=== PATIENT | female | born 1940 | race Caucasian/White ===

== ENCOUNTER 2016-12-31 13:40 | Emergency (ER) | payer MEDICARE ==
[~2016-12-31] VITALS: Ht 175.3 cm; Wt 82.0 kg
[~2016-12-31 13:40] MED LIST: ALBU0.086 NEB; ASPI325T PO; BENI40TA30 PO; EFFE150C PO; FURO1TAB93 PO; LEVO.05 PO; LIPI10TA PO; MUPI2%T TOP; PRED20 PO; PROP20TA3 PO; TRIA.1%T TOP; VENTAER INH; ZITH250T PO
[2016-12-31 13:43] VITALS: BP 140/75; PULSE 77; RESP 14; TEMP 97.4; O2SAT 95
[2016-12-31 16:13] LABS: AUTOMATED NEUTROPHIL # 5.4 TH/MM3 (1.8-7.7); BASOPHIL % 0.6 % (0.0-2.0); EOSINOPHIL # 0.2 TH/MM3 (0-0.4); EOSINOPHIL % 2.3 % (0.0-4.0); HEMATOCRIT 42.8 % (35.0-46.0); HEMO FLAGS DIFF FINAL; LYMPH % 24.1 % (9.0-44.0); MEAN CELL VOLUME 90.6 FL (80.0-100.0); MEAN CORPUSCULAR HEMOGLOBIN 30.3 PG (27.0-34.0); MEAN CORPUSCULAR HGB CONC 33.5 % (32.0-36.0); MONO % 8.6 % (0.0-8.0); NEUT % 64.4 % (16.0-70.0); PLATELET COUNT 295 TH/MM3 (150-450); RED BLOOD COUNT 4.72 MIL/MM3 (4.00-5.30); RED CELL DISTRIBUTION WIDTH 14.4 % (11.6-17.2); WHITE BLOOD COUNT 8.4 TH/MM3 (4.0-11.0)
[2016-12-31 16:17] LABS: BACTERIA, URINE RARE /hpf; BLOOD, URINE NEG (NEG); COMMENT (UR) CULT NOT INDICATED; CULTURE IF INDICATED CULT NOT INDICATED; GLUCOSE,URINE NEG (NEG); HYALINE CAST, URINE 13 /lpf (RARE); KETONE, URINE NEG (NEG); NITRITE,URINE NEG (NEG); PH, URINE 5.5 (5.0-8.5); SQUAMOUS EPITHELIAL CELL URINE 2 /hpf (0-5); URINE COLOR YELLOW (YELLW/STRAW)
[2016-12-31 16:29] LABS: ALT (GPT) 27 U/L (10-53); ANION GAP 7 MEQ/L (5-15); AST (GOT) 21 U/L (15-37); BICARBONATE 27.1 MEQ/L (21.0-32.0); BLOOD UREA NITROGEN 31 MG/DL (7-18); CHLORIDE 103 MEQ/L (98-107); GLOMERULAR FILTRATION RATE 34 ML/MIN (>89); POTASSIUM 3.8 MEQ/L (3.5-5.1); SODIUM (NA) 137 MEQ/L (136-145)
[2016-12-31 16:31] LABS: ALKALINE PHOSPHATASE 79 U/L (45-117); TOTAL BILIRUBIN ADULT 0.4 MG/DL (0.2-1.0)
--- NOTE | 2016-12-31 18:44 | PD ---
HPI Chief Complaint: GI Complaint Time Seen by Provider: 18:31 Travel History International Travel<30 days: No Contact w/Intl Traveler<30days: No Traveled to known affect area: No History of Present Illness HPI 76-year-old female here for evaluation of intermittent abdominal cramping and diarrhea since last week. Patient reports symptoms started after eating at a [employer]. Bowel movements have been loose/brown, nonbloody, no melena. No vomiting. No fevers or chills. History of hysterectomy and cholecystectomy. Abdominal cramping is diffuse, moderate, no modifying factors. Patient reports history of similar symptoms in the past that have been occurring every couple of months. States that she was seen by a intraoperative neuro tech about a year ago, but was not diagnosed with anything significant. Patient's daughter also reports that the patient has had about a pound weight loss over the last several days. No chest pain or dyspnea. Triage vital signs are within normal limits. Basic laboratory performed in triage shows a CBC that was unremarkable, CMP remarkable for BUN 31, creatinine 0.7, GFR 34 which is slightly worse than her baseline, otherwise unremarkable. Lipase 133. Lactic acid 0.9. UA not suggestive of UTI. PFSH Past Medical History Anemia: Yes Arthritis: Yes Asthma: Yes Anxiety: Yes Depression: No Cancer: No Cardiovascular Problems: Yes High Cholesterol: Yes Congestive Heart Failure: Yes COPD: Yes Cerebrovascular Accident: Yes Diabetes: No Diminished Hearing: No Endocrine: Yes GERD: Yes Genitourinary: No Hepatitis: No Hiatal Hernia: No Hypertension: Yes Immune Disorder: No Musculoskeletal: Yes Neurologic: Yes Psychiatric: Yes Reproductive: No Respiratory: Yes Pneumonia: Yes Thyroid Disease: Yes ?: Not Menopausal: Yes : 1 Para: 1 Past Surgical History Abdominal Surgery: Yes (LAP. ELIZ) AICD: No Cholecystectomy: Yes Ear Surgery: No Eye Surgery: Yes (BILATERAL CATARACT) Gynecologic Surgery: Yes (HYSTERECTOMY) Hysterectomy: Yes Joint Replacement: Yes (LEFT/RIGHT HIP TOTAL) Oral Surgery: No Pacemaker: No Other Surgery: Yes Social History Alcohol Use: Yes (OCCASSIONAL) Tobacco Use: No Substance Use: No Allergies-Medications (Allergen,Severity, Reaction): Coded Allergies: Cipro (Verified Allergy, Severe, HIVES, 12/31/16) Celebrex (Unverified Adverse Reaction, Severe, CONGESTIVE HEART FAILURE, ) Adhesives (Unverified Adverse Reaction, Mild, 12/31/16) 05/11/13 UNABLE TO REMEMBER RXN Reported Meds & Prescriptions Reported Meds & Active Scripts Active Reported Effexor XR 24 HR (Venlafaxine HCl) 150 Mg Cap 150 Mg PO DAILY Benicar (Olmesartan) 20 Mg Tab 20 Mg PO DAILY Propranolol (Propranolol HCl) 20 Mg Tab 20 Mg PO DAILY Synthroid (Levothyroxine Sodium) 50 Mcg Tab 50 Mcg PO DAILY Furosemide 40 Mg Tab 40 Mg PO DAILY Aspirin 325 Mg Tab 325 Mg PO DAILY Review of Systems Except as stated in HPI: all other systems reviewed are Neg Physical Exam Narrative GENERAL: Well-developed, well-nourished, comfortable, no acute distress. SKIN: Warm and dry. HEAD: Atraumatic. Normocephalic. EYES: Pupils equal and round. No scleral icterus. No injection or drainage. ENT: Mucous membranes pink and moist. NECK: Trachea midline. No JVD. CARDIOVASCULAR: Regular rate and rhythm. No murmur appreciated. RESPIRATORY: No accessory muscle use. Clear to auscultation. Breath sounds equal bilaterally. GASTROINTESTINAL: Abdomen soft, nondistended. Mild diffuse tenderness without rebound or guarding. Normal bowel sounds. MUSCULOSKELETAL: No obvious deformities. No clubbing. No cyanosis. No edema. NEUROLOGICAL: Awake and alert. No obvious cranial nerve deficits. Motor grossly within normal limits. Normal speech. PSYCHIATRIC: Appropriate mood and affect; insight and judgment normal. Data Data Last Documented VS Vital Signs Date Time Temp Pulse Resp B/P Pulse Ox O2 Delivery O2 Flow Rate FiO2 12/31/16 19:09 63 18 208/88 97 Room Air 12/31/16 13:43 97.4 Orders Complete Blood Count With Diff (12/31/16 14:35) Comprehensive Metabolic Panel (12/31/16 14:35) Lipase (12/31/16 14:35) Lactic Acid (12/31/16 14:35) Urinalysis - C+S If Indicated (12/31/16 14:35) Sodium Chlor 0.9% 1000 Ml Inj (Ns 1000 M (12/31/16 18:45) Dicyclomine (Bentyl) (12/31/16 18:45) Ct Abd/Pel W/O Iv Contrast (12/31/16 ) Influenzae A/B Antigen (12/31/16 18:38) Electrocardiogram (12/31/16 ) Propranolol (Inderal) (12/31/16 20:00) Ckmb (Isoenzyme) Profile (12/31/16 19:28) Troponin I (12/31/16 19:28) CKMB (12/31/16 15:50) CKMB% (12/31/16 15:50) Labs Laboratory Tests Test 12/31/16 12/31/16 15:50 15:55 White Blood Count 8.4 TH/MM3 Red Blood Count 4.72 MIL/MM3 Hemoglobin 14.3 GM/DL Hematocrit 42.8 % Mean Corpuscular Volume 90.6 FL Mean Corpuscular Hemoglobin 30.3 PG Mean Corpuscular Hemoglobin 33.5 % Concent Red Cell Distribution Width 14.4 % Platelet Count 295 TH/MM3 Mean Platelet Volume 7.1 FL Neutrophils (%) (Auto) 64.4 % Lymphocytes (%) (Auto) 24.1 % Monocytes (%) (Auto) 8.6 % Eosinophils (%) (Auto) 2.3 % Basophils (%) (Auto) 0.6 % Neutrophils # (Auto) 5.4 TH/MM3 Lymphocytes # (Auto) 2.0 TH/MM3 Monocytes # (Auto) 0.7 TH/MM3 Eosinophils # (Auto) 0.2 TH/MM3 Basophils # (Auto) 0.0 TH/MM3 CBC Comment DIFF FINAL Differential Comment Sodium Level 137 MEQ/L Potassium Level 3.8 MEQ/L Chloride Level 103 MEQ/L Carbon Dioxide Level 27.1 MEQ/L Anion Gap 7 MEQ/L Blood Urea Nitrogen 31 MG/DL Creatinine 1.47 MG/DL Estimat Glomerular Filtration 34 ML/MIN Rate Random Glucose 125 MG/DL Lactic Acid Level 0.9 mmol/L Calcium Level 9.4 MG/DL Total Bilirubin 0.4 MG/DL Aspartate Amino Transf 21 U/L (AST/SGOT) Alanine Aminotransferase 27 U/L (ALT/SGPT) Alkaline Phosphatase 79 U/L Total Creatine Kinase 116 U/L Creatine Kinase MB 1.9 NG/ML Troponin I LESS THAN 0.02 NG/ML Total Protein 7.9 GM/DL Albumin 4.3 GM/DL Lipase 133 U/L Urine Color YELLOW Urine Turbidity CLEAR Urine pH 5.5 Urine Specific Peggs 1.022 Urine Protein TRACE mg/dL Urine Glucose (UA) NEG mg/dL Urine Ketones NEG mg/dL Urine Occult Blood NEG Urine Nitrite NEG Urine Bilirubin NEG Urine Urobilinogen LESS THAN 2.0 MG/DL Urine Leukocyte Esterase NEG Urine RBC 1 /hpf Urine WBC 1 /hpf Urine Squamous Epithelial 2 /hpf Cells Urine Bacteria RARE /hpf Urine Hyaline Casts 13 /lpf Microscopic Urinalysis Comment CULT NOT INDICATED MDM Medical Decision Making Medical Screen Exam Complete: Yes Emergency Medical Condition: Yes Medical Record Reviewed: Yes Interpretation(s) EKG: Sinus, rate 61, normal axis, slightly prolonged QRS interval, minimal ST depressions in anterior, inferior, lateral leads, no ST segment elevations. Differential Diagnosis Dehydration, viral illness, intra-abdominal infection, electrolyte abnormality Narrative Course Triage vital signs are within normal limits. Basic laboratory performed in triage shows a CBC that was unremarkable, CMP remarkable for BUN 31, creatinine 0.7, GFR 34 which is slightly worse than her baseline, otherwise unremarkable. Lipase 133. Lactic acid 0.9. UA not suggestive of UTI. CT abdomen pelvis: CONCLUSION: 1. No definite acute abnormality is seen. 2. Mild hiatal hernia. 3. 4.4 cm low density mass seen in the right lobe of the liver likely representing a cyst or hemangioma. It is nonspecific on this noncontrast CT examination. 4. Scattered colonic diverticula without inflammatory change. Influenza is negative. Cardiac enzymes are negative. The patient was given a liter of normal saline IV, a dose of Bentyl, and on reassessment she is resting comfortably, stating that she feels a lot better. There are no peritoneal signs on exam. She will follow-up with her primary care physician regarding the CT abdomen finding of possible liver cyst first hemangioma. I do not believe that this is an infectious cyst, and it has likely been there for a long time. She was informed on when to return to the emergency department. She verbalizes understanding and agreement with plan. Diagnosis Primary Impression: Abdominal cramping Additional Impressions: Diarrhea Qualified Code: R19.7 - Diarrhea, unspecified type Liver cyst Referrals: Primary Care Physician 3 days Additional Instructions: Follow-up with your primary care physician this week. Stay hydrated with plenty of fluids. Return to the emergency department for worsening symptoms or any other concerns. Scripts Dicyclomine (Bentyl)10 Mg Cap10 Mg PO TID PRN (Bowel Management) #20 CAP Ref 0 Prov:Darien Morgan MD 12/31/16 Disposition: 01 DISCHARGE HOME Condition: Stable Darien Morgan MD Dec 31, 2016 18:43
[2016-12-31] MEDS ORDERED: DICYCLOMINE HCL 10 MG CAP PO ONE (18:45)
[2016-12-31] MEDS ORDERED: SODIUM CHLOR 0.9% 1000 ML INJ 1,000 ML IV ONE (18:45)
[2016-12-31 19:09] VITALS: BP 208/88; PULSE 63; RESP 18; O2SAT 97
[2016-12-31] MEDS ORDERED: LEVO.05 PO (19:16)
[2016-12-31] MEDS ORDERED: PROP20TA3 PO (19:16)
[2016-12-31] MEDS ORDERED: ASPI325T PO (19:16)
[2016-12-31] MEDS ORDERED: FURO40TA PO (19:16)
[2016-12-31] MEDS ORDERED: EFFE150C PO (19:17)
[2016-12-31] MEDS ORDERED: BENI20TA5 PO (19:17)
--- NOTE | 2016-12-31 19:18 | RADRPT ---
EXAM DATE/TIME: 12/31/2016 18:52 [facility] COMPARISON: No previous studies available for comparison. INDICATIONS : Abdominal pain and lower pelvic cramping. ORAL CONTRAST: No oral contrast ingested. RADIATION DOSE: 15.01 CTDIvol (mGy) MEDICAL HISTORY : Hypertension. Chronic obstructive pulmonary disease. Gastroesophageal refl ux disease. SURGICAL HISTORY : Cholecystectomy. Hysterectomy. ENCOUNTER: Initial ACUITY: 1 week PAIN SCALE: 6/10 LOCATION: Bilateral upper quadrant TECHNIQUE: Volumetric scanning of the abdomen and pelvis was performed. Using automated exposure control and adjustment of the mA and/or kV according to patient size, radiation dose was kept as low as reasonably achievable to obtain optimal diagnostic quality images. FINDINGS: There is a 4.4 cm hyperdensity seen in the right lobe of the liver likely representing a cyst. This is nonspecific on this noncontrast CT examination. The spleen, pancreas and adrenal gl ands are normal. Both kidneys appear grossly normal. Renal stones are not seen. There is no hydron ephrosis. There are scattered calcifications seen at the aorta. No aneurysm is present. There is a mild hiatal hernia present. Significantly dilated bowel is not seen. There are scattered colonic di verticula without significant inflammatory change. The patient has bilateral hip prosthesis in place. This does cause some streak artifact in the pelvi s. There is degenerative change in the lumbar spine. CONCLUSION: 1. No definite acute abnormality is seen. 2. Mild hiatal hernia. 3. 4.4 cm low density mass seen in the right lobe of the liver likely representing a cyst or hemangio ma. It is nonspecific on this noncontrast CT examination. 4. Scattered colonic diverticula without inflammatory change. Sravan Weeks MD on December 31, 2016 at 19:06 Board Certified Radiologist. This report was verified electronically.
[2016-12-31 19:50] LABS: CREATINE KINASE 116 U/L (26-192)
[2016-12-31] MEDS ORDERED: PROPRANOLOL HCL 20 MG TAB PO ONE (20:00)
[2016-12-31 20:02] LABS: CKMB 1.9 NG/ML (0.5-3.6)
[2016-12-31] MEDS ORDERED: DICY10 PO (20:22)
[2016-12-31 20:29] VITALS: BP 181/84; PULSE 65; RESP 18; O2SAT 99
--- NOTE | 2017-01-01 10:33 | EKG ---
Date Performed: 12/31/2016 Time Performed: 19:24:57 PTAGE: 76 years EKG: Sinus rhythm BORDERLINE ECG Compared to prior tracing no significant change PREVIOUS TRACING : 02/28/2016 11.14 DOCTOR: Blane Hunt Interpretating Date/Time 01/01/2017 10:31:57
[2017-04-09] MEDS ORDERED: ATOR20TA15 PO (15:15)
[2017-04-09] MEDS ORDERED: POTA75TA2 (15:15)
[2017-04-09] MEDS ORDERED: ESTR0.5T PO (15:15)
[2017-04-09] MEDS ORDERED: VALS1TAB63 PO (15:15)
[2017-04-09] MEDS ORDERED: OMEP20TA PO (15:15)
[2017-04-09] MEDS ORDERED: HYDR12.56 PO (15:15)
[2017-04-09] MEDS ORDERED: DILT-30 PO (15:15)
[2017-04-09] MEDS ORDERED: ESTR42.5V VAGINAL (15:48)
== END 2016-12-31 21:27 | disposition home or self-care (01) ==
LOC: NEPA 13:40
DX: R10.9 Unspecified abdominal pain (principal); R19.7 Diarrhea, unspecified; K76.89 Other specified diseases of liver; R94.31 Abnormal electrocardiogram [ECG] [EKG]; D64.9 Anemia, unspecified; J45.909 Unspecified asthma, uncomplicated; E78.00 Pure hypercholesterolemia, unspecified; I10 Essential (primary) hypertension
CPT/HCPCS: 74176; 80053; 81001; 82550; 82552; 83605; 83690; 84484; 85025; 87804; 93005; 99284; J7030

== ENCOUNTER → 2017-04-29 | Outpatient (CLI) | payer MEDICARE ==
[~2017-04-29] MED LIST changes: -ALBU0.086 NEB; +ATOR20TA15 PO; +BENI20TA5 PO; -BENI40TA30 PO; +DICY10 PO; +DILT-30 PO; +ESTR0.5T PO; +ESTR42.5V VAGINAL; -FURO1TAB93 PO; +FURO40TA PO; +HYDR12.56 PO; -LIPI10TA PO; -MUPI2%T TOP; +OMEP20TA PO; +POTA75TA2; -PRED20 PO; -TRIA.1%T TOP; +VALS1TAB63 PO; -VENTAER INH; -ZITH250T PO
[2017-04-29 13:57] LABS: BLOOD GAS BASE EXCESS 1.8 mmol/L (-2-2); BLOOD GAS CARBOXYHEMOGLOBIN 1.4 % (0-4); BLOOD GAS HCO3 26 mmol/L (22-26); BLOOD GAS METHEMOGLOBIN 1.2 % (0-2); BLOOD GAS O2 HGB SATURATION 94 % (90-100); BLOOD GAS OXYGEN CONTENT 15.8 Vol % (12.0-20.0); BLOOD GAS PCO2 40 mmHg (38-42); BLOOD GAS PO2 87 mmHg (61-120); BLOOD GAS TOTAL HGB 11.9 G/DL (12.0-16.0); TEMP CORR TO 98.6
[2017-04-29 13:58] LABS: CRITICAL VALUE NO; DRAW SITE RT RADIAL; FIO2 21 %; NUMBER OF ARTERIAL PUNCTURES 1; STAT NO; ULNAR PULSE PRESENT
--- NOTE | 2017-04-30 08:50 | RSPPFT ---
DATE OF PROCEDURE: 04/29/17 COMMENTS: VOLUMES DYNAMIC: FVC and FEV1 moderately reduced. STATIC: RV mildly increase, FRC and TLC normal. FLOWS: FEV1% moderately reduced; FEF 25-75 severely reduced. DIFFUSION: Normal. FLOW VOLUME LOOP: Pattern of variable intrathoracic airways obstruction. IMPRESSION: Moderate obstructive ventilatory defect with no reduction in diffusion. There is moderate hyperinflation. Airways resistance is increased. There is improvement post-bronchodilator.
== END ==
LOC: HRSP 12:47
PROVIDERS: ATTEND Internal Medicine Interventional Cardiology
DX: J44.9 Chronic obstructive pulmonary disease, unspecified (principal); R06.02 Shortness of breath
CPT/HCPCS: 36600; 82805; 94060; 94726; 94729

== ENCOUNTER 2018-03-25 12:23 | Observation (INO) | payer MEDICARE ==
[2018-03-25] MEDS ORDERED: SODIUM CHLORIDE 0.9% FLUSH 10 ML FLUSH IVF (13:15)
[2018-03-25] MEDS: RESP: ALBUTEROL 2.5 MG/IPRATROPIUM 0.5 MG NEB (SCH) INH ×4 (13:35→23:54)
[2018-03-25 13:36] LABS: AUTOMATED NEUTROPHIL # 12.1 TH/MM3 (1.8-7.7); BASOPHIL # 0.4 TH/MM3 (0-0.2); BASOPHIL % 2.1 % (0.0-2.0); EOSINOPHIL # 0.1 TH/MM3 (0-0.4); EOSINOPHIL % 0.8 % (0.0-4.0); HEMATOCRIT 42.1 % (35.0-46.0); HEMOGLOBIN 14.6 GM/DL (11.6-15.3); LYMPH % 19.4 % (9.0-44.0); LYMPHOCYTE # 3.3 TH/MM3 (1.0-4.8); MEAN CELL VOLUME 90.6 FL (80.0-100.0); MEAN CORPUSCULAR HEMOGLOBIN 31.5 PG (27.0-34.0); MEAN CORPUSCULAR HGB CONC 34.8 % (32.0-36.0); MEAN PLATELET VOLUME 7.1 FL (7.0-11.0); MONO % 7.2 % (0.0-8.0); MONOCYTE # 1.2 TH/MM3 (0-0.9); NEUT % 70.5 % (16.0-70.0); PLATELET COUNT 393 TH/MM3 (150-450); RED BLOOD COUNT 4.65 MIL/MM3 (4.00-5.30); RED CELL DISTRIBUTION WIDTH 13.5 % (11.6-17.2); WHITE BLOOD COUNT 17.2 TH/MM3 (4.0-11.0)
[2018-03-25 13:40] LABS: HEMO FLAGS DIFF FINAL
[2018-03-25 13:49] LABS: D-DIMER 1.02 MG/L FEU (0.00-0.50)
[2018-03-25 13:56] LABS: ALBUMIN 3.7 GM/DL (3.4-5.0); ANION GAP 9 MEQ/L (5-15); AST (GOT) 21 U/L (15-37); BICARBONATE 31.4 MEQ/L (21.0-32.0); BLOOD UREA NITROGEN 21 MG/DL (7-18); CALCIUM 9.6 MG/DL (8.5-10.1); CHLORIDE 100 MEQ/L (98-107); CREATININE 1.35 MG/DL (0.50-1.00); GLOMERULAR FILTRATION RATE 38 ML/MIN (>89); GLUCOSE,RANDOM 108 MG/DL (74-106); MAGNESIUM 2.2 MG/DL (1.5-2.5); POTASSIUM 3.1 MEQ/L (3.5-5.1); SODIUM (NA) 140 MEQ/L (136-145)
[2018-03-25 14:09] LABS: B-TYPE NATRIURETIC PEPTIDE 30 PG/ML (0-100)
[2018-03-25 14:12] LABS: ALKALINE PHOSPHATASE 68 U/L (45-117); ALT (GPT) 29 U/L (10-53); TOTAL BILIRUBIN ADULT 0.5 MG/DL (0.2-1.0); TOTAL PROTEIN 7.6 GM/DL (6.4-8.2); TROPONIN I LESS THAN 0.02 NG/ML (0.02-0.05)
[2018-03-25] MEDS: methylPREDNISolone SOD SUCC 125 MG/2 ML VIAL IV PUSH (15:00)
[2018-03-25] MEDS ORDERED: SODIUM CHLORIDE 0.9% FLUSH 10 ML FLUSH IV FLUSH (16:15)
[2018-03-25] MEDS ORDERED: RESP: ALBUTEROL 2.5 MG/3 ML NEB (PRN) INH (16:15)
[2018-03-25] MEDS ORDERED: BENZONATATE 100 MG CAP PO (17:30)
[2018-03-25] MEDS ORDERED: PILL SPLITTER OTHER (20:00)
[2018-03-25] MEDS: SODIUM CHLORIDE 0.9% FLUSH 10 ML FLUSH IV FLUSH (21:00)
[2018-03-25] MEDS: ATORVASTATIN 20 MG TAB PO (21:30)
[2018-03-25] MEDS: POTASSIUM CHLORIDE 10 MEQ CONTROLLED RELEASE TAB PO (21:31)
[2018-03-26] MEDS ORDERED: ONDANSETRON HCL 4 MG/2 ML VIAL IV PUSH (02:15)
[2018-03-26] MEDS: RESP: ALBUTEROL 2.5 MG/IPRATROPIUM 0.5 MG NEB (SCH) INH ×4 (03:48→15:44)
[2018-03-26] MEDS: LEVOTHYROXINE SODIUM 50 MCG TAB PO (06:53)
[2018-03-26] MEDS: POTASSIUM CHLORIDE 20 MEQ CONTROLLED RELEASE TAB PO (08:26)
[2018-03-26] MEDS: DILTIAZEM-CD 180 MG CAP ER PO (08:27)
[2018-03-26] MEDS: SODIUM CHLORIDE 0.9% FLUSH 10 ML FLUSH IV FLUSH (08:27)
[2018-03-26] MEDS: predniSONE 20 MG TAB PO (08:27)
[2018-03-26] MEDS: VENLAFAXINE HCL XR 75 MG CAP PO (08:27)
[2018-03-26] MEDS: FUROSEMIDE 40 MG TAB PO (08:27)
[2018-03-26] MEDS: ESTRADIOL 1 MG TAB PO (08:27)
[2018-03-26] MEDS: HYDROCHLOROTHIAZIDE 12.5 MG CAP PO (08:27)
[2018-03-26 08:48] LABS: AUTOMATED NEUTROPHIL # 26.2 TH/MM3 (1.8-7.7); BASOPHIL % 0.1 % (0.0-2.0); HEMATOCRIT 39.5 % (35.0-46.0); HEMO FLAGS DIFF FINAL; HEMOGLOBIN 13.6 GM/DL (11.6-15.3); LYMPH % 7.2 % (9.0-44.0); LYMPHOCYTE # 2.1 TH/MM3 (1.0-4.8); MEAN CORPUSCULAR HEMOGLOBIN 31.1 PG (27.0-34.0); MEAN CORPUSCULAR HGB CONC 34.6 % (32.0-36.0); MONO % 2.3 % (0.0-8.0); MONOCYTE # 0.7 TH/MM3 (0-0.9); NEUT % 90.4 % (16.0-70.0); PLATELET COUNT 392 TH/MM3 (150-450); RED BLOOD COUNT 4.39 MIL/MM3 (4.00-5.30); RED CELL DISTRIBUTION WIDTH 13.2 % (11.6-17.2)
[2018-03-26 09:26] LABS: ANION GAP 13 MEQ/L (5-15); BICARBONATE 26.6 MEQ/L (21.0-32.0); BLOOD UREA NITROGEN 27 MG/DL (7-18); CALCIUM 9.8 MG/DL (8.5-10.1); CHLORIDE 98 MEQ/L (98-107); CREATININE 1.63 MG/DL (0.50-1.00); GLOMERULAR FILTRATION RATE 30 ML/MIN (>89); GLUCOSE,RANDOM 224 MG/DL (74-106); POTASSIUM 3.5 MEQ/L (3.5-5.1); SODIUM (NA) 138 MEQ/L (136-145)
== END 2018-03-26 18:31 | disposition home or self-care (01) ==
LOC: NEPD 12:23 → NEDA 15:18 → NEPGCP 17:27
DX: J44.1 Chronic obstructive pulmonary disease with (acute) exacerbation (principal); R53.1 Weakness; R42 Dizziness and giddiness; E87.6 Hypokalemia; I49.3 Ventricular premature depolarization; R94.31 Abnormal electrocardiogram [ECG] [EKG]; I11.0 Hypertensive heart disease with heart failure; I50.9 Heart failure, unspecified; E03.9 Hypothyroidism, unspecified; E78.5 Hyperlipidemia, unspecified; Z86.73 Personal history of transient ischemic attack (TIA), and cerebral infarction without residual deficits; Z79.899 Other long term (current) drug therapy; Z79.82 Long term (current) use of aspirin
CPT/HCPCS: 71045; 78582; 80048; 80053; 83735; 83880; 84484; 85025; 85379; 87804; 87804-59; 93005; 94640; 94664; 97162-GP; 99285-25